=== PATIENT | male | born 1975 | race Caucasian/White ===

== ENCOUNTER 2016-06-28 17:51 | Emergency (ER) | payer OTHER ==
[2016-06-28] MEDS ORDERED: NS 500 ML IV ONE (18:00)
--- NOTE | 2016-06-28 18:05 | CPEKG ---
Heart Rate: 78 RR Interval: 769 P-R Interval: 180 QRSD Interval: 106 QT Interval: 360 QTC Interval: 411 P Ros[place]: 41 QRS [place]: 19 T Wave Ros[place]: 8 EKG Severity - NORMAL ECG - EKG Impression: SINUS RHYTHM Electronically Signed By: Marco Asif 28-Jun-2016 23:39:44
[2016-06-28 18:22] LABS: % IMMATURE GRANULYOCYTES 0.7 % (0.0-1.1); ABSOLUTE IMMATURE GRANULOCYTES 0.05 10^3/uL (0.00-0.10); ADD DIFF? NO; ADD MORPH? NO; ADD SCAN? NO; ATYPICAL LYMPHOCYTE FLAG 0 (0-99); FRAGMENT RBC FLAG 0 (0-99); HEMATOCRIT 51.7 % (40.0-51.0); HEMOGLOBIN 18.2 g/dL (13.7-17.5); LEFT SHIFT FLG 0 (0-99); LIPEMIA HEMOLYSIS FLAG 90 (0-99); MEAN CELL HEMOGLOBIN 30.6 pg (27.9-34.1); MEAN CELL HEMOGLOBIN CONCENTR. 35.2 g/dL (32.4-36.7); MEAN CELL VOLUME 86.9 fL (81.5-99.8); MEAN PLATELET VOLUME 9.8 fL (8.7-11.7); PLATELET CLUMPS FLAG 10 (0-99); PLATELET COUNT 269 10^3/uL (150-400); RED BLOOD CELL COUNT 5.95 10^6/uL (4.40-6.38); RED CELL DISTRIBUTION WIDTH 12.6 % (11.5-15.2)
[2016-06-28 18:28] LABS: INR 0.89 (0.83-1.16); PROTIME(PATIENT) 11.9 SEC (12.0-15.0)
[2016-06-28 18:29] LABS: APTT 28.7 SEC (23.0-38.0)
[2016-06-28 18:36] LABS: ANION GAP 15 mEq/L (8-16); CALCIUM 10.6 mg/dL (8.5-10.4); CARBON DIOXIDE 27 mEq/l (22-31); CHLORIDE 100 mEq/L (97-110); CREATININE 1.5 mg/dL (0.7-1.3); GLOMERULAR FILTRATION RATE 51; GLUCOSE 101 mg/dL (70-100); POTASSIUM 4.1 mEq/L (3.5-5.2); SODIUM 142 mEq/L (134-144)
[2016-06-28 18:48] LABS: TROPONIN I < 0.012 ng/mL (0-0.034)
--- NOTE | 2016-06-28 18:58 | EDPHY ---
H & P Time Seen by Provider: 06/28/16 17:59 HPI/ROS: HPI Chest discomfort. 41-year-old male by private vehicle with his . Patient reports that he has been under stress lately with work and family. He reports that he has been feeling anxious and at night he states that he wakes up with a pressure and tightness feeling in his mid chest slightly left of the sternum. He reports he will then drifts back to sleep and then be woken again by this discomfort. He reports that while he is up and walking around during the day he does not notice it as much. He denies any radiation of the pain. No associated diaphoresis, nausea or vomiting. He has no coronary artery disease history. No significant family history of coronary artery disease. He is on a statin. He is also prescribed testosterone. ROS: Constitutional: No fever, no chills. No weakness. Eyes: No discharge. No changes in vision. ENT: No sore throat. No nasal congestion or rhinorrhea. Respiratory: No cough. Mild shortness of breath when he is laying flat during these episodes. Cardiac: As above, no palpitations. Gastrointestinal: No abdominal pain, no vomiting, no diarrhea. Genitourinary: No hematuria. No dysuria or increased frequency with urination. Musculoskeletal: No back pain. No neck pain. No myalgias or arthralgias. Skin: No rashes. Neurological: No headache. No focal weakness or altered sensation. Past medical history: Hypothyroidism. As above. His primary care physician is Dr. Darrel Shea. Social history: Nonsmoker. Here with his . Social alcohol. Physical Exam: General Appearance: Alert, no distress. This patient is responding to questions appropriately and in full sentences. This patient appears well- hydrated and well-nourished. Eyes: Pupils equal and round no pallor or injection. No lid edema, erythema or injection. Respiratory: There are no retractions, lungs are clear to auscultation with good air movement bilaterally. Cardiovascular: Regular rate and rhythm. No murmur. Gastrointestinal: Abdomen is soft and nontender, no masses, bowel sounds normal. No focal tenderness at McBurney's point. No Anne sign. Neurological: Motor sensory function is grossly intact. Cranial nerves are normal. Gait is normal. Skin: Warm and dry, no rashes. Musculoskeletal: Neck is supple and nontender. Extremities are symmetrical. No calf tenderness on palpation, no palpable cords. Negative Rex sign bilaterally. All joints range without pain or impingement. Psychiatric: No agitation. No depression. Database: EKG: EKG time is 6:03 p.m.; EKG shows a narrow complex normal sinus rhythm with a ventricular rate of 78. The OK, QRS, QT intervals are within normal limits. There are no ST-T wave changes indicative of ischemic or injury pattern. No evidence of right heart strain. Interpreted by me. Imaging: Chest x-ray AP portable; the cardiac mediastinal silhouette is unremarkable. No evidence of infiltrate or pneumothorax. No acute cardiopulmonary disease process noted. Interpreted by me. Left lower extremity ultrasound; negative for DVT. Results were discussed with staff radiologist Dr. Golden Payne. Procedures: Emergency department course: IV placed. He was placed on a engine monitor. He was given 324 mg of chewed aspirin. EKG and chest x-ray performed. 6:45 p.m., patient re-evaluated. Resting comfortably at this time. He denies any significant chest discomfort or shortness of breath. 7:15 p.m., patient re-evaluated. No chest discomfort or shortness of breath at this time. Results of all diagnostic test discussed with him and his . I discussed admission. He does not want to be admitted. His workup and emergency department evaluation have been reassuring. His presentation is not consistent with acute coronary syndrome. Plan will be to discharge him home and have him follow up with Cardiology for provocative testing on Thursday. The patient understands his follow-up. His primary care physician is Dr. Darrel Shea. He will also get in touch with Dr. Shea for further evaluation. Strict return to emergency department precautions have been discussed with him and his . All of their questions were answered. The patient was discharged home in good condition. Differential Diagnosis: The differential diagnosis on this patient includes but is not limited to pleurisy, anxiety, esophageal spasm. Acute coronary syndrome, myocardial infarction, pulmonary embolism, aortic dissection, pericarditis, myocarditis, pneumonia, pneumothorax unlikely. This represents a partial list of diagnoses considered. These considerations are based on history, physical exam, past history, reassessment and diagnostic testing. Smoking Status: Never smoked Constitutional: Initial Vital Signs Temperature (C) 36.5 C 06/28/16 17:56 Heart Rate 77 02/25/17 17:56 Respiratory Rate 16 06/28/16 17:56 Blood Pressure 157/110 H 06/28/16 17:56 O2 Sat (%) 97 06/28/16 17:56 O2 Delivery Mode Room Air Allergies/Adverse Reactions: No Known Allergies Allergy (Unverified 06/28/16 17:54) Home Medications: Medication Instructions Recorded Levothyroxine 06/28/16 Medical Decision Making - Data Points Laboratory Results: Laboratory Results 06/28/16 18:05 06/28/16 18:05 06/28/16 06/28/16 06/28/16 18:05 18:05 18:05 WBC 7.61 10^3/uL 10^3/uL (3.80-9.50) RBC 5.95 10^6/uL 10^6/uL (4.40-6.38) Hgb 18.2 g/dL H g/dL (13.7-17.5) Hct 51.7 % H % (40.0-51.0) MCV 86.9 fL fL (81.5-99.8) MCH 30.6 pg pg (27.9-34.1) MCHC 35.2 g/dL g/dL (32.4-36.7) RDW 12.6 % % (11.5-15.2) Plt Count 269 10^3/uL 10^3/uL (150-400) MPV 9.8 fL fL (8.7-11.7) Neut % (Auto) 51.8 % % (39.3-74.2) Lymph % (Auto) 33.8 % % (15.0-45.0) [place] % (Auto) 10.2 % % (4.5-13.0) Eos % (Auto) 2.6 % % (0.6-7.6) Baso % (Auto) 0.9 % % (0.3-1.7) Nucleat RBC Rel Count 0.0 % % (0.0-0.2) Absolute Neuts (auto) 3.94 10^3/uL 10^3/uL (1.70-6.50) Absolute Lymphs (auto) 2.57 10^3/uL 10^3/uL (1.00-3.00) Absolute Monos (auto) 0.78 10^3/uL 10^3/uL (0.30-0.80) Absolute Eos (auto) 0.20 10^3/uL 10^3/uL (0.03-0.40) Absolute Basos (auto) 0.07 10^3/uL 10^3/uL (0.02-0.10) Absolute Nucleated RBC 0.00 10^3/uL 10^3/uL (0-0.01) Immature Gran % 0.7 % % (0.0-1.1) Immature Gran # 0.05 10^3/uL 10^3/uL (0.00-0.10) PT 11.9 SEC L SEC (12.0-15.0) INR 0.89 (0.83-1.16) APTT 28.7 SEC SEC (23.0-38.0) D-Dimer < 0.27 ug/mLFEU ug/mLFEU (0.00-0.50) Sodium 142 mEq/L mEq/L (134-144) Potassium 4.1 mEq/L mEq/L (3.5-5.2) Chloride 100 mEq/L mEq/L (97-110) Carbon Dioxide 27 mEq/l mEq/l (22-31) Anion Gap 15 mEq/L mEq/L (8-16) BUN 20 mg/dL mg/dL (7-23) Creatinine 1.5 mg/dL H mg/dL (0.7-1.3) Estimated GFR 51 Glucose 101 mg/dL H mg/dL (70-100) Calcium 10.6 mg/dL H mg/dL (8.5-10.4) Troponin I < 0.012 ng/mL ng/mL (0-0.034) TSH 06/28/16 18:00 WBC RBC Hgb Hct MCV MCH MCHC RDW Plt Count MPV Neut % (Auto) Lymph % (Auto) [place] % (Auto) Eos % (Auto) Baso % (Auto) Nucleat RBC Rel Count Absolute Neuts (auto) Absolute Lymphs (auto) Absolute Monos (auto) Absolute Eos (auto) Absolute Basos (auto) Absolute Nucleated RBC Immature Gran % Immature Gran # PT INR APTT D-Dimer Sodium Potassium Chloride Carbon Dioxide Anion Gap BUN Creatinine Estimated GFR Glucose Calcium Troponin I TSH 2.710 uIU/mL uIU/mL (0.465-4.680) Medications Given: Discontinued Medications Sodium Chloride (Ns) 500 mls @ 0 mls/hr IV ONCE ONE PRN Reason: As Directed Stop: 06/28/16 18:01 Last Admin: 06/28/16 18:25 Dose: 500 mls Departure - Departure Disposition: Home, Routine, Self-Care Clinical Impression: Chest discomfort, Stress reaction Condition: Good Instructions: Chest Pain (ED) Additional Instructions: Read and follow provided instructions. No strenuous physical activity until you have been evaluated at [facility] as discussed. Follow-up with your primary care physician, Dr. Shea, in 2-3 days for re- evaluation. Call the office of Dr. Ba Fleming, compliance specialist, or 1 of his partners at [facility] on Thursday to arrange for stress test as discussed. Dr. Shea can also help to arrange this. Return to the emergency department immediately for chest pain, difficulty breathing or other serious concerns. Referrals: Darrel Shea MD [Primary Care Provider] - As per Instructions Ba Fleming MD [Medical Doctor] - As per Instructions
[2016-06-28 20:20] VITALS: BP 141/84; PULSE 71; RESP 18; TEMP 98.2; O2SAT 96
== END 2016-06-28 20:20 | disposition home or self-care (01) ==
DX: R07.89 Other chest pain (principal); F43.9 Reaction to severe stress, unspecified